=== PATIENT | female | born 1970 | race Caucasian/White ===

== ENCOUNTER 2021-11-24 12:07 | Emergency (ER) | payer OTHER ==
[~2021-11-24] VITALS: Ht 167.6 cm; Wt 95.3 kg
[2021-11-24 13:40] LABS: HEMATOCRIT 40.6 % (37.0-47.0); MCH 31.6 pg (26.0-34.0); MCHC 34.6 g/dL (28.0-37.0); MCV 91.4 fL (80.0-100.0); MPV 9.5 fl. (7.2-11.1); NUCLEATED RBCS 0 /100WBC; PLATELET COUNT* 268 thou/uL (150-400); RBC 4.44 mil/uL (4.20-5.00); RDW-CV 12.6 % (10.5-14.5); WBC 4.9 thou/uL (4.0-11.0)
[2021-11-24 14:17] LABS: ABSOLUTE EOSINOPHILS 0.1 thou/uL (0.0-0.7); ABSOLUTE LYMPHOCYTES 1.9 thou/uL (0.8-5.3); ABSOLUTE MONOCYTES 0.1 thou/uL (0.0-1.2); ABSOLUTE NEUTROPHILS 2.7 thou/uL (1.6-8.1)
[2021-11-24 14:18] LABS: PLATELET ESTIMATE ADEQUATE
[2021-11-24 15:10] LABS: ALBUMIN 3.8 g/dL (3.4-5.0); CALCIUM 9.1 mg/dL (8.5-10.1); CREATININE 0.6 mg/dL (0.6-1.3); POTASSIUM 3.8 mmol/L (3.5-5.1); TOTAL BILIRUBIN 0.3 mg/dL (<0.1-1.0); TOTAL PROTEIN 7.6 g/dL (6.4-8.2)
[2021-11-24 15:35] VITALS: BP 121/78
[2021-11-24 15:38] LABS: URINE BILIRUBIN NEGATIVE (Negative); URINE BLOOD NEGATIVE (Negative); URINE COLOR YELLOW; URINE GLUCOSE-RANDOM NEGATIVE (Negative); URINE KETONES NEGATIVE (Negative); URINE LEUKOCYTES-REFLEX TRACE (Negative); URINE NITRITE-REFLEX NEGATIVE (Negative); URINE PROTEIN TRACE (Negative); URINE SPECIFIC GRAVITY 1.015 (1.005-1.030)
[2021-11-24 15:40] LABS: URINE CLARITY HAZY
[2021-11-24 15:46] LABS: BACTERIA-REFLEX None Seen /HPF (None Seen); CASTS None Seen /LPF (None Seen); MUCUS 0-3 Light strn/LPF (None Seen); SQUAMOUS >10 Many /LPF (0-3); URINE RBC None Seen /HPF (0-2); URINE WBC-REFLEX None Seen /HPF (0-5)
[2021-11-24 15:47] LABS: CRYSTALS None Seen /LPF (None Seen)
--- NOTE | 2021-11-25 10:58 | EKG ---
[place] [address] ELECTROCARDIOGRAM REPORT Name: ANKUSH LOPEZ Room: [facility]#: [id number] Admission: 11/24/21 Attend Phys: Discharge: 11/24/21 Date of : 66 Date of Service: 11/24/21 1215 Report #: [id number] THIS REPORT FOR: //name// 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 : 1970 Requested By: Sesar Hernandez Order Number: [id number] MD: Benjamin Small Measurements Intervals [place] Rate: 58 P: 19 DE: 213 QRS: 21 QRSD: 102 T: 27 QT: 440 QTc: 433 Interpretive Statements Sinus rhythm Prolonged DE interval Baseline wander in lead(s) I,III,aVL No previous ECG available for comparison Electronically Signed On 11-25-2021 10:58:29 [employer] by Benjamin Small [email or web address] <ELECTRONICALLY SIGNED> By: Benjamin Small MD, [facility] 11/25/21 1058 1215 1215 Benjamin Small MD, [facility] /EPI
== END 2021-11-24 15:36 | disposition home or self-care (01) ==
LOC: M.ERS 12:07
PROVIDERS: Family Medicine
DX: R07.89 Other chest pain (principal); R20.0 Anesthesia of skin; R30.9 Painful micturition, unspecified; R20.2 Paresthesia of skin; R06.02 Shortness of breath; I48.91 Unspecified atrial fibrillation